=== PATIENT | female | born 1970 | race Caucasian/White ===

== ENCOUNTER 2021-01-07 21:14 | Emergency (ER) | payer OTHER ==
[~2021-01-07] VITALS: Ht 165.1 cm; Wt 54.4 kg
[2021-01-07 22:12] VITALS: BP 106/73
--- NOTE | 2021-01-07 22:16 | NUR ---
TO ROOM 2 FROM TRIAGE
--- NOTE | 2021-01-07 22:30 | NUR ---
ERMD FLAMMIA AT BEDSIDE FOR MEDICAL EXAMINATION
[2021-01-07] MEDS ORDERED: PRED20TA5 PO (22:39)
[2021-01-07 22:49] VITALS: BP 106/73
--- NOTE | 2021-01-07 22:49 | NUR ---
Patient discharged with v/s stable. Written and verbal after care instructions given and explained. Patient alert, oriented and verbalized understanding of instructions. Ambulatory with steady gait. All questions addressed prior to discharge. ID band removed. Patient advised to follow up with PMD. Rx of DELTASONE given. Patient educated on indication of medication including possible reaction and side effects. Opportunity to ask questions provided and answered.
--- NOTE | 2021-01-07 22:49 | NUR ---
PT. SEEN BY EZE GILMORE, NO NURSING INTERVENTIONS NEEDED.
== END 2021-01-07 22:49 | disposition home or self-care (01) ==
LOC: MED 21:14
DX: L50.9 Urticaria, unspecified (principal)
CPT/HCPCS: 99283